=== PATIENT | female | born 1995 | race Caucasian/White ===

== ENCOUNTER 2017-07-16 14:39 | Emergency (ER) | payer OTHER ==
[~2017-07-16] VITALS: Ht 170.2 cm; Wt 85.3 kg
[~2017-07-16 14:39] MED LIST: ACETAMINOP160 MG/12 PO; ACETAMINOPHEN-1 EAC1 PO; AMOXICILLIN 50500 MG PO; AMOXICILLIN250 MG PO; AZITHROMYCIN 2250 MG PO; BACTRIM DS TAB1 EACH PO; CARAFATE 1 GM TA1 GM PO; CIPROFLOXACIN500 M1 PO; DOXYCYCLINE 10100 MG PO; FLAGYL500 MG PO; FLEXERIL PO; FLONASE 0.05%50 MCG NASAL; IMPLANON; LIDOCAINE VISC100 M1 MM; LORTAB 10 MG-3473 ML PO; MEDROLDOSEPACK PO; NOHOMEMEDICATIONS; PREDNISONE 20 M20 M1 PO; PREVACID 24HR15 MG PO; PROAIR HFA8.5 GM INH; PROMETHAZINE HC25 M1 PO; PROMETHAZINE-D120 ML PO; PROTONIX40 MG PO; ULTRAM 50MG TAB50 MG PO; ZOFRAN ODT4 MG PO; [UNRECOGNIZED DRUG - OTHER]
[2017-07-16] MEDS ORDERED: ADIPEX-P37.5 MG PO (14:45)
[2017-07-16 15:02] LABS: ABSOLUTE BASOPHILS 0.1 thou/uL (0.0-0.2); ABSOLUTE EOSINOPHILS 0.1 thou/uL (0.0-0.7); ABSOLUTE MONOCYTES 0.6 thou/uL (0.0-1.2); ABSOLUTE NEUTROPHILS 7.1 thou/uL (1.6-8.1); BASOPHILS 0.6 %; EOSINOPHILS 1.3 %; HEMATOCRIT 36.4 % (37.0-47.0); HEMOGLOBIN 12.3 gm/dL (12.0-15.0); LYMPHOCYTES 19.9 %; MCH 30.1 pg (26.0-34.0); MCHC 33.6 g/dL (28.0-37.0); MCV 89.4 fL (80.0-100.0); MONOCYTES 5.9 %; MPV 9.4 fl. (7.2-11.1); NUCLEATED RBCS 0 /100WBC; PLATELET COUNT* 225 thou/uL (150-400); POLYS 72.3 %; RBC 4.08 mil/uL (4.20-5.00); WBC 9.8 thou/uL (4.0-11.0)
[2017-07-16 15:09] LABS: ANION GAP 9 mmol/L (7-16); BUN 12 mg/dL (7-18); CHLORIDE 105 mmol/L (98-107); CO2 28 mmol/L (21-32); CREATININE 0.8 mg/dL (0.6-1.3); GLUCOSE 73 mg/dL (70-99); POTASSIUM 3.6 mmol/L (3.5-5.1); SODIUM 142 mmol/L (136-145)
[2017-07-16 15:20] LABS: ALBUMIN 3.8 g/dL (3.4-5.0); ALKALINE PHOSPHATASE 50 U/L (46-116); LIPASE 167 U/L (73-393); NT-PRO BRAIN NAT PEPTIDE 105 pg/mL (<300); SGOT 24 U/L (15-37); SGPT 35 U/L (30-65); TOTAL BILIRUBIN 0.4 mg/dL (<0.1-1.0); TOTAL PROTEIN 6.9 g/dL (6.4-8.2); TROPONIN-I LEVEL <0.06 ng/mL (<0.06)
[2017-07-16] MEDS ORDERED: NORCO 5-325 TA1 EACH PO (15:49)
[2017-07-16 16:24] VITALS: BP 113/76
--- NOTE | 2017-07-17 16:31 | EKG ---
[place] [address] ELECTROCARDIOGRAM REPORT Name: NEEL YEE [facility] [id number] Admission: 07/16/17 Attend Phys: Discharge: 07/16/17 Date of : [birth year] Report #: [id number] THIS REPORT FOR: //name// 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
== END 2017-07-16 16:25 | disposition home or self-care (01) ==
LOC: M.ERS 14:39
PROVIDERS: Emergency Medicine Emergency Medical Services
DX: R07.9 Chest pain, unspecified (principal); Z90.89 Acquired absence of other organs; Z88.2 Allergy status to sulfonamides

== ENCOUNTER 2018-01-25 19:15 | Emergency (ER) | payer OTHER ==
[~2018-01-25] VITALS: Ht 170.2 cm; Wt 81.7 kg
[~2018-01-25 19:15] MED LIST changes: +ADIPEX-P37.5 MG PO; +NORCO 5-325 TA1 EACH PO
[2018-01-25] MEDS ORDERED: ZOLOFT50 MG (19:23)
[2018-01-25 19:51] LABS: ABSOLUTE LYMPHOCYTES 1.5 thou/uL (0.8-5.3); ABSOLUTE MONOCYTES 0.4 thou/uL (0.0-1.2); ABSOLUTE NEUTROPHILS 7.8 thou/uL (1.6-8.1); BASOPHILS 0.3 %; EOSINOPHILS 0.3 %; HEMATOCRIT 37.3 % (37.0-47.0); HEMOGLOBIN 12.3 gm/dL (12.0-15.0); LYMPHOCYTES 15.1 %; MCH 28.5 pg (26.0-34.0); MCV 86.3 fL (80.0-100.0); MONOCYTES 4.4 %; NUCLEATED RBCS 0 /100WBC; PLATELET COUNT* 282 thou/uL (150-400); POLYS 79.9 %; RBC 4.32 mil/uL (4.20-5.00); WBC 9.7 thou/uL (4.0-11.0)
[2018-01-25 20:06] LABS: URINE BILIRUBIN NEGATIVE (Negative); URINE BLOOD NEGATIVE (Negative); URINE COLOR YELLOW; URINE GLUCOSE-RANDOM NEGATIVE (Negative); URINE KETONES NEGATIVE (Negative); URINE LEUKOCYTES-REFLEX 1+ (Negative); URINE NITRITE-REFLEX NEGATIVE (Negative); URINE PROTEIN TRACE (Negative); URINE SPECIFIC GRAVITY 1.025 (1.005-1.030); URINE UROBILINOGEN 0.2 E.U./dl (0.2-1.0)
[2018-01-25 20:07] LABS: URINE CLARITY HAZY
[2018-01-25 20:09] LABS: CALCIUM 9.3 mg/dL (8.5-10.1); CREATININE 0.8 mg/dL (0.6-1.3); POTASSIUM 3.7 mmol/L (3.5-5.1)
[2018-01-25 20:13] LABS: ALBUMIN 4.6 g/dL (3.4-5.0); TOTAL BILIRUBIN 0.5 mg/dL (<0.1-1.0); TOTAL PROTEIN 8.4 g/dL (6.4-8.2)
[2018-01-25 20:13] LABS: SQUAMOUS >10 Many /LPF (0-3)
[2018-01-25 20:14] LABS: BACTERIA-REFLEX 1-9 Few /HPF (None Seen); CASTS None Seen /LPF (None Seen); CRYSTALS None Seen /LPF (None Seen); MUCUS 0-3 Light strn/LPF (None Seen); URINE RBC None Seen /HPF (0-2)
[2018-01-25] MEDS ORDERED: ZOFRAN ODT4 MG PO (20:53)
[2018-01-25] MEDS ORDERED: MACROBID 100 M100 M1 PO (20:53)
[2018-01-25 20:54] LABS: INFLUENZA A ANTIGEN None Detected (None Detect); INFLUENZA B ANTIGEN None Detected (None Detect)
[2018-01-25 21:20] VITALS: BP 119/68
== END 2018-01-25 21:21 | disposition home or self-care (01) ==
LOC: M.ERS 19:15
PROVIDERS: Physician Assistant
DX: N39.0 Urinary tract infection, site not specified (principal); R11.2 Nausea with vomiting, unspecified; Z88.2 Allergy status to sulfonamides; Z88.1 Allergy status to other antibiotic agents

== ENCOUNTER → 2018-02-23 | Outpatient (CLI) | payer OTHER ==
[~2018-02-23] MED LIST changes: +MACROBID 100 M100 M1 PO; +ZOLOFT50 MG
== END ==
LOC: M.ULTRA 15:32
DX: M79.89 Other specified soft tissue disorders (principal); M79.662 Pain in left lower leg; R20.0 Anesthesia of skin

== ENCOUNTER 2019-01-31 18:39 | Emergency (ER) | payer OTHER ==
[~2019-01-31] VITALS: Ht 170.2 cm; Wt 77.1 kg
[2019-01-31 19:24] LABS: ABSOLUTE EOSINOPHILS 0.1 thou/uL (0.0-0.7); ABSOLUTE LYMPHOCYTES 1.4 thou/uL (0.8-5.3); ABSOLUTE MONOCYTES 0.4 thou/uL (0.0-1.2); ABSOLUTE NEUTROPHILS 3.7 thou/uL (1.6-8.1); BASOPHILS 0.4 %; EOSINOPHILS 1.2 %; HEMOGLOBIN 10.3 gm/dL (12.0-15.0); LYMPHOCYTES 24.9 %; MCH 31.4 pg (26.0-34.0); MCHC 34.4 g/dL (28.0-37.0); MCV 91.3 fL (80.0-100.0); MONOCYTES 7.4 %; NUCLEATED RBCS 0 /100WBC; PLATELET COUNT* 208 thou/uL (150-400); POLYS 66.1 %; RBC 3.28 mil/uL (4.20-5.00); RDW-CV 13.8 % (10.5-14.5); WBC 5.6 thou/uL (4.0-11.0)
[2019-01-31 19:27] LABS: CALCIUM 8.3 mg/dL (8.5-10.1); CREATININE 0.8 mg/dL (0.6-1.3); POTASSIUM 3.8 mmol/L (3.5-5.1)
[2019-01-31 19:31] LABS: ALBUMIN 3.6 g/dL (3.4-5.0); TOTAL BILIRUBIN 0.3 mg/dL (<0.1-1.0); TOTAL PROTEIN 6.7 g/dL (6.4-8.2)
[2019-01-31 19:57] LABS: URINE BILIRUBIN NEGATIVE (Negative); URINE BLOOD 3+ (Negative); URINE CLARITY CLOUDY; URINE COLOR YELLOW; URINE GLUCOSE-RANDOM NEGATIVE (Negative); URINE KETONES NEGATIVE (Negative); URINE LEUKOCYTES-REFLEX 1+ (Negative); URINE NITRITE-REFLEX NEGATIVE (Negative); URINE PROTEIN TRACE (Negative); URINE UROBILINOGEN 0.2 E.U./dl (0.2-1.0)
[2019-01-31 20:06] LABS: MUCUS 0-3 Light strn/LPF (None Seen); SQUAMOUS >10 Many /LPF (0-3)
[2019-01-31 20:07] LABS: CASTS None Seen /LPF (None Seen); CRYSTALS None Seen /LPF (None Seen); URINE WBC-REFLEX 6-15 Few /HPF (0-5)
[2019-01-31 20:11] LABS: AMP/METHAMP Negative (Negative); BARBITURATES Negative (Negative); BENZODIAZEPINES Negative (Negative); COCAINE Negative (Negative); METHADONE Negative (Negative); OPIATES Negative (Negative); PCP Negative (Negative); THC Negative (Negative)
[2019-01-31] MEDS ORDERED: VISTARIL 25 MG25 M1 PO (20:38)
[2019-01-31 20:59] VITALS: BP 132/80
--- NOTE | 2019-02-01 10:25 | EKG ---
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
== END 2019-01-31 21:04 | disposition home or self-care (01) ==
LOC: M.ERS 18:39
PROVIDERS: Nurse Practitioner Family
DX: R07.89 Other chest pain (principal); Z90.89 Acquired absence of other organs; Z90.49 Acquired absence of other specified parts of digestive tract; Z88.2 Allergy status to sulfonamides; Z88.8 Allergy status to other drugs, medicaments and biological substances

== ENCOUNTER 2019-04-22 08:07 | Emergency (ER) | payer OTHER ==
[~2019-04-22] VITALS: Ht 167.6 cm; Wt 79.4 kg
[~2019-04-22 08:07] MED LIST changes: +VISTARIL 25 MG25 M1 PO
[2019-04-22 08:52] LABS: INFLUENZA A ANTIGEN Negative (Negative); INFLUENZA B ANTIGEN Negative (Negative)
[2019-04-22] MEDS ORDERED: ZOFRAN ODT4 MG DISSOLVE (09:02)
[2019-04-22 09:10] VITALS: BP 129/63
== END 2019-04-22 09:11 | disposition home or self-care (01) ==
LOC: M.ERS 08:07
PROVIDERS: Emergency Medicine Emergency Medical Services
DX: J06.9 Acute upper respiratory infection, unspecified (principal); Z90.89 Acquired absence of other organs; Z88.2 Allergy status to sulfonamides; Z88.8 Allergy status to other drugs, medicaments and biological substances

== ENCOUNTER → 2020-06-28 | Outpatient (CLI) | payer OTHER ==
[~2020-06-28] MED LIST changes: +ZOFRAN ODT4 MG DISSOLVE
[2020-06-28 14:47] LABS: ABSOLUTE EOSINOPHILS 0.1 thou/uL (0.0-0.7); ABSOLUTE LYMPHOCYTES 1.3 thou/uL (0.8-5.3); ABSOLUTE MONOCYTES 0.4 thou/uL (0.0-1.2); ABSOLUTE NEUTROPHILS 3.3 thou/uL (1.6-8.1); BASOPHILS 0.6 %; EOSINOPHILS 2.2 %; HEMATOCRIT 36.1 % (37.0-47.0); HEMOGLOBIN 11.9 gm/dL (12.0-15.0); MCH 29.2 pg (26.0-34.0); MCV 88.5 fL (80.0-100.0); MONOCYTES 6.8 %; NUCLEATED RBCS 0 /100WBC; PLATELET COUNT* 204 thou/uL (150-400); POLYS 64.4 %; RBC 4.08 mil/uL (4.20-5.00); RDW-CV 14.6 % (10.5-14.5); WBC 5.2 thou/uL (4.0-11.0)
[2020-06-28 14:48] LABS: URINE BILIRUBIN NEGATIVE (Negative); URINE BLOOD NEGATIVE (Negative); URINE CLARITY CLEAR; URINE COLOR YELLOW; URINE GLUCOSE-RANDOM NEGATIVE (Negative); URINE KETONES NEGATIVE (Negative); URINE LEUKOCYTES NEGATIVE (Negative); URINE NITRITE NEGATIVE (Negative); URINE PROTEIN NEGATIVE (Negative); URINE SPECIFIC GRAVITY >= 1.030 (1.005-1.030); URINE UROBILINOGEN 0.2 E.U./dl (0.2-1.0)
[2020-06-28 14:58] LABS: ALBUMIN 4.2 g/dL (3.4-5.0); ALKALINE PHOSPHATASE 46 U/L (46-116); ANION GAP 8 mmol/L (7-16); BUN 13 mg/dL (7-18); CALCIUM 9.4 mg/dL (8.5-10.1); CHLORIDE 103 mmol/L (98-107); CHOLESTEROL 129 mg/dL (<200); CO2 28 mmol/L (21-32); CREATININE 0.8 mg/dL (0.6-1.3); GLUCOSE 77 mg/dL (70-99); HDL CHOLESTEROL 75 mg/dL (>40); LDL CHOLESTEROL 40 mg/dL (<100); POTASSIUM 3.7 mmol/L (3.5-5.1); SGOT 11 U/L (15-37); SGPT 19 U/L (30-65); SODIUM 139 mmol/L (136-145); TC:HDL 1.7 Ratio (Not establshd); TOTAL BILIRUBIN 0.4 mg/dL (<0.1-1.0); TOTAL PROTEIN 7.9 g/dL (6.4-8.2); TRIGLYCERIDE 72 mg/dL (<150); VLDL 14 mg/dL (<40)
[2020-06-28 14:59] LABS: SERUM ASSESSMENT Clear
[2020-06-29 21:06] LABS: ANA INTERPRETATION Negative (())
== END ==
LOC: M.LAB 14:27
PROVIDERS: ATTEND Family Medicine
DX: M79.89 Other specified soft tissue disorders (principal); M25.50 Pain in unspecified joint

== ENCOUNTER → 2020-07-07 | Outpatient (CLI) | payer OTHER | LOC: M.ULTRA 10:00 | PROVIDERS: ATTEND Family Medicine | DX: I87.2 Venous insufficiency (chronic) (peripheral) (principal) ==

== ENCOUNTER 2020-11-28 08:31 | Emergency (ER) | payer OTHER ==
[~2020-11-28] VITALS: Ht 170.2 cm; Wt 77.1 kg
[2020-11-28 09:46] VITALS: BP 126/70
== END 2020-11-28 09:46 | disposition home or self-care (01) ==
LOC: M.ERS 08:31
DX: O98.511 Other viral diseases complicating pregnancy, first trimester (principal); Z20.822 Contact with and (suspected) exposure to COVID-19; R11.2 Nausea with vomiting, unspecified; B34.9 Viral infection, unspecified; Z3A.00 Weeks of gestation of pregnancy not specified; Z88.2 Allergy status to sulfonamides